=== PATIENT | female | born 2005 | race African-American/Black ===

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

== ENCOUNTER 2024-03-01 13:14 | Emergency (ER) | payer OTHER ==
[2024-03-01 13:22] VITALS: BP 115/70; PULSE 81; RESP 18; TEMP 97.6; BMI 23.3
== END 2024-03-01 14:33 | disposition home or self-care (01) ==
LOC: JERFT 13:14
DX: K13.0 Diseases of lips (principal)
CPT/HCPCS: 99282-25